=== PATIENT | female | born 1955 | race Asian ===

== ENCOUNTER 2016-04-10 16:51 | Inpatient (IN) | payer MEDICAID ==
[~2016-04-10] VITALS: Ht 172.7 cm; Wt 68.0 kg
[2016-04-10 17:12] LABS: BASOPHILS # (AUTO) 0.2 /CMM (0.0-0.2); BASOPHILS % (AUTO) 2.2 % (0.0-2.0); DIFF TOTAL % 100 %; HEMATOCRIT 28 % (33-45); HEMOGLOBIN 9.5 g/dL (11.5-14.8); LYMPHOCYTES # (AUTO) 0.4 /CMM (0.8-4.8); LYMPHOCYTES % (AUTO) 3.7 % (20.0-44.0); MEAN CORPUSCULAR HEMOGLOBIN 32 PG (26.0-33.0); MEAN CORPUSCULAR HGB CONC 34 g/dl (31.0-36.0); MEAN CORPUSCULAR VOLUME 97 fL (82-100); MONOCYTES # (AUTO) 0.2 /CMM (0.1-1.30); MONOCYTES % (AUTO) 1.9 % (2.0-12.0); NEUTROPHILS # (AUTO) 10.6 /CMM (1.8-8.9); NEUTROPHILS % (AUTO) 92.2 % (43.0-81.0); PLATELET COUNT (AUTO) 152 /CMM (150-450); RED BLOOD CELL COUNT(AUTO) 2.95 MIL/uL (4.0-5.2); WHITE BLOOD COUNT (AUTO) 11.4 K/uL (4.3-11.0)
[2016-04-10 17:20] LABS: KETONES,URINE Negative (NEGATIVE); LEUKOCYTE ESTERASE ,URINE Moderate (NEGATIVE)
[2016-04-10 17:21] LABS: ADD UA MICROSCOPIC YES
[2016-04-10 17:22] LABS: ANION GAP 18 (5-14); CARBON DIOXIDE 23 mmol/L (21-32); CHLORIDE 100 mmol/L (98-107); CREATININE 3.2 mg/dL (0.6-1.3); GFR 15 mL/min (>60); GLUCOSE 273 mg/dL (74-106); POTASSIUM 4.5 mmol/L (3.5-5.1); SODIUM SERUM 136 mmol/L (136-145); UREA NITROGEN, BLOOD 63 mg/dL (7-18)
[2016-04-10] MEDS ORDERED: FURO20TA4 PO (17:24)
[2016-04-10] MEDS ORDERED: METO25TA20 PO (17:24)
[2016-04-10] MEDS ORDERED: ALLO100T PO (17:24)
[2016-04-10] MEDS ORDERED: SIMV20TA6 PO (17:24)
[2016-04-10] MEDS ORDERED: GLYB5TAB7 PO (17:24)
[2016-04-10] MEDS ORDERED: TRIA1CAP6 PO (17:24)
[2016-04-10] MEDS ORDERED: FENO145T20 PO (17:24)
[2016-04-10] MEDS ORDERED: PIOG45TA PO (17:24)
[2016-04-10] MEDS ORDERED: NIAC-5 PO (17:24)
[2016-04-10] MEDS ORDERED: NIAC500T2 PO (17:24)
[2016-04-10] MEDS ORDERED: CLOP75TA2 PO (17:24)
[2016-04-10] MEDS ORDERED: FOLI1TAB16 PO (17:24)
[2016-04-10] MEDS ORDERED: CLON0.1T PO (17:24)
[2016-04-10] MEDS ORDERED: DOCU-270 PO (17:24)
[2016-04-10] MEDS ORDERED: FERR-58 PO (17:24)
[2016-04-10 17:26] LABS: INR 1.05 (0.87-1.13)
[2016-04-10 17:28] LABS: ALANINE AMINOTRANSFERASE 36 U/L (12-78); ALBUMIN 3.7 g/dL (3.4-5.0); ASPARTATE AMINOTRANSFERASE 53 U/L (15-37); BILIRUBIN,DIRECT 0.2 mg/dL (0.0-0.2); BILIRUBIN,TOTAL 0.5 mg/dL (0.2-1.0); INDIRECT BILIRUBIN 0.3 mg/dL (0.0-1.1); TOTAL PROTEIN, SERUM 7.8 g/dL (6.4-8.2)
[2016-04-10 17:30] LABS: TROPONIN I < 0.017 ng/mL (0.00-0.056)
[2016-04-10 17:30] LABS: ADD URINE CULTURE YES
[2016-04-10] MEDS ORDERED: DEXTROSE 50%-WATER 50 ML DISP.SYRIN IV ONE (17:30)
[2016-04-10] MEDS ORDERED: IV SET PRIMARY 1 EA INFUS.SET MC ONE (18:30)
[2016-04-10] MEDS ORDERED: CEFTRIAXONE 1GM BAG (ER ONLY) 50 ML IV ONE (18:30)
[2016-04-10] MEDS ORDERED: CEFTRIAXONE 1GM BAG (ER ONLY) 1 GM/50 ML PIGGYBACK IV ONE (18:30)
[2016-04-10] MEDS ORDERED: INSULIN REGULAR, HUMAN 100 UNIT/ML 3 ML VIAL SQ PRN ×2 (21:00→21:30)
[2016-04-10] MEDS ORDERED: DEXTROSE 50%-WATER 50 ML DISP.SYRIN IV PRN ×2 (21:00→21:30)
[2016-04-10] MEDS ORDERED: HYDROCODONE/APAP 5/325MG 1 EACH TABLET PO PRN (21:30)
[2016-04-10] MEDS ORDERED: ACETAMINOPHEN 325 MG TABLET PO PRN (21:30)
[2016-04-10] MEDS ORDERED: IV D5/0.45 NACL 1,000 ML IV SCH (22:00)
[2016-04-10] MEDS ORDERED: BLOOD SUGAR DIAGNOSTIC 1 EACH STRIP IN SCH (22:00)
[2016-04-10] MEDS ORDERED: CLONIDINE HCL 0.1 MG TABLET PO PRN (22:00)
[2016-04-10] MEDS ORDERED: IV SET PRIMARY PUMP SET 1 EA INFUS.SET MC ONE (22:11)
[2016-04-10] MEDS: BLOOD SUGAR DIAGNOSTIC 1 EACH STRIP IN SCH (22:29)
[2016-04-10 23:37] VITALS: BP 152/69
[2016-04-11] VITALS (12 sets, daily range): BP systolic 122–158; BP diastolic 58–75
[2016-04-11] MEDS ORDERED: ACETAMINOPHEN 325 MG TABLET ONE (00:42)
[2016-04-11 06:50] LABS: DIFF TOTAL % 100 %; HEMATOCRIT 23 % (33-45); HEMOGLOBIN 7.7 g/dL (11.5-14.8); LYMPHOCYTES # (AUTO) 0.4 /CMM (0.8-4.8); MEAN CORPUSCULAR HEMOGLOBIN 32 PG (26.0-33.0); MEAN CORPUSCULAR HGB CONC 34 g/dl (31.0-36.0); MEAN CORPUSCULAR VOLUME 96 fL (82-100); MONOCYTES # (AUTO) 0.9 /CMM (0.1-1.30); MONOCYTES % (AUTO) 9.3 % (2.0-12.0); NEUTROPHILS % (AUTO) 86.7 % (43.0-81.0); PLATELET COUNT (AUTO) 120 /CMM (150-450); RED BLOOD CELL COUNT(AUTO) 2.36 MIL/uL (4.0-5.2); WHITE BLOOD COUNT (AUTO) 9.2 K/uL (4.3-11.0)
[2016-04-11 07:20] LABS: CALCIUM, SERUM 8.5 mg/dL (8.5-10.1); CREATININE 3.5 mg/dL (0.6-1.3); POTASSIUM 3.6 mmol/L (3.5-5.1)
[2016-04-11] MEDS: BLOOD SUGAR DIAGNOSTIC 1 EACH STRIP IN SCH ×3 (07:30→18:28)
[2016-04-11] MEDS ORDERED: LEVOFLOXACIN 500 MG /D5W 100ML 500 MG in PREMIX 1 EA IV SCH (08:00)
[2016-04-11] MEDS ORDERED: SECONDARY IV SET 1 EA INFUS.SET MC ONE (09:18)
[2016-04-11] MEDS ORDERED: FOLIC ACID 1 MG TABLET PO SCH (13:00)
[2016-04-11] MEDS ORDERED: METOPROLOL TARTRATE 25 MG TABLET PO SCH (13:00)
[2016-04-11] MEDS ORDERED: FENOFIBRATE NANOCRYS (145 MG) 145 MG TABLET PO SCH (13:00)
[2016-04-11] MEDS ORDERED: ALLOPURINOL 100 MG TABLET PO SCH (13:00)
[2016-04-11] MEDS ORDERED: TRIAMTERENE/HYDROCHLOROTHIAZID (37.5/25MG) 1 UDCAP PO SCH (13:30)
[2016-04-11] MEDS: FERROUS SULFATE (325 MG) 325 MG/TAB TABLET PO SCH ×2 (13:50→17:18)
[2016-04-11] MEDS: DOCUSATE SODIUM 100 MG CAPSULE PO SCH ×2 (13:50→17:18)
[2016-04-11] MEDS ORDERED: BLOOD IV SET 1 EA INFUS.SET MC ONE (16:05)
[2016-04-11] MEDS ORDERED: IV NS 0.9% 250 ML IV ONE (16:06)
[2016-04-11] MEDS ORDERED: FUROSEMIDE 20 MG TABLET PO SCH (18:00)
[2016-04-11] MEDS ORDERED: CLOPIDOGREL BISULFATE 75 MG TABLET PO SCH (18:00)
[2016-04-11] MEDS ORDERED: SIMVASTATIN 20 MG TABLET PO SCH (18:00)
[2016-04-13] MEDS ORDERED: LEVOFLOXACIN 250 MG /D5W 50 ML 250 MG in PREMIX 1 EA IV SCH (08:00)
== END 2016-04-11 19:00 | disposition home or self-care (01) | DRG 420 ==
LOC: ER 16:53 → TELE 19:12 → MED 04-11 10:09
PROVIDERS: ADMIT Internal Medicine; ATTEND Internal Medicine
PROC: 30233N1 Transfusion of Nonautologous Red Blood Cells into Peripheral Vein, Percutaneous Approach (ICD-10-PCS; principal; 2016-04-11)
DX: E11.649 Type 2 diabetes mellitus with hypoglycemia without coma (principal); G93.41 Metabolic encephalopathy; N18.4 Chronic kidney disease, stage 4 (severe); F03.90 Unspecified dementia, unspecified severity, without behavioral disturbance, psychotic disturbance, mood disturbance, and anxiety; N39.0 Urinary tract infection, site not specified; E11.22 Type 2 diabetes mellitus with diabetic chronic kidney disease; E78.5 Hyperlipidemia, unspecified; Z86.73 Personal history of transient ischemic attack (TIA), and cerebral infarction without residual deficits; I12.9 Hypertensive chronic kidney disease with stage 1 through stage 4 chronic kidney disease, or unspecified chronic kidney disease; D63.1 Anemia in chronic kidney disease
CPT/HCPCS: 36415; 70450-TC; 71010-TC; 72170-TC; 80048-TC; 80061-TC; 80076-TC; 81000-TC; 82962-TC; 84484-TC; 85025-TC; 85730-TC; 86850-TC; 86921-TC; 87081-TC; 87086-TC; 87186-TC; A4216; A4606; A6402; J0696; J1815; J1956; J7050; P9016-BL; Z7610